=== PATIENT | male | born 1945 | race Caucasian/White ===

== ENCOUNTER 2022-04-27 01:43 | Emergency (ER) | payer MEDICARE, OTHER ==
[2022-04-27] MEDS ORDERED: Sodium Chloride 0.9% 10 ML Syringe FLUSH PRN ×2 (02:22→02:31)
[2022-04-27] MEDS ORDERED: Iopamidol 612 MG/ML 100 ML Bottle IV PRN (02:31)
[2022-04-27] MEDS ORDERED: Sodium Chloride 0.9% 75 ML IV SCH (02:45)
[2022-04-27 02:59] LABS: ESTIMATED GFR 69 mL/min (>60)
[2022-04-27 05:15] VITALS: BP 104/59; PULSE 77
== END 2022-04-27 05:15 ==
LOC: JP.ED 01:43
DX: A08.4 Viral intestinal infection, unspecified (principal); K56.609 Unspecified intestinal obstruction, unspecified as to partial versus complete obstruction; Z79.82 Long term (current) use of aspirin; Z79.01 Long term (current) use of anticoagulants; Z79.899 Other long term (current) drug therapy; Z20.822 Contact with and (suspected) exposure to COVID-19
CPT/HCPCS: 36415; 74177; 80053; 85025; 86140; 99285; J3490; Q9967; U0002